=== PATIENT | male | born 1955 | race Asian ===

== ENCOUNTER 2018-05-26 14:33 | Emergency (ER) | payer OTHER ==
[~2018-05-26] VITALS: Ht 182.9 cm; Wt 81.6 kg
[2018-05-26 14:34] VITALS: TEMP 98
[2018-05-26 15:15] LABS: PLATELET COUNT 364 K/uL (142-355)
[2018-05-26 15:24] LABS: POTASSIUM 4.7 mmol/L (3.6-5.2)
[2018-05-26 16:48] VITALS: BP 124/72
[2018-05-26] MEDS ORDERED: ASCORBIC ACD500 MG PO (17:26)
[2018-05-26] MEDS ORDERED: ASPIRIN 8181 MG PO (17:27)
[2018-05-26] MEDS ORDERED: BENZTROPINE2 MG PO (17:28)
[2018-05-26] MEDS ORDERED: DIVA500T2 PO (17:29)
[2018-05-26] MEDS ORDERED: MELATONIN3 M1 PO (17:32)
[2018-05-26] MEDS ORDERED: OLANZAPINE10 M2 PO (17:32)
[2018-05-26] MEDS ORDERED: LEVO0.1519 PO (17:35)
[2018-05-26] MEDS ORDERED: TRAZ100T PO ×2 (17:37→17:39)
[2018-05-26] MEDS ORDERED: VITAMIN B-COMPL1 TAB PO (17:41)
[2018-05-26] MEDS ORDERED: VITAMI11 PO (17:42)
[2018-06-08] MEDS ORDERED: DIVA125C PO (15:27)
[2018-06-08] MEDS ORDERED: SCOP1.5D TD (15:27)
[2018-06-08] MEDS ORDERED: LEVO0.1T6 PO (15:27)
[2018-06-08] MEDS ORDERED: HALO5INJ3 IM (15:27)
[2018-06-08] MEDS ORDERED: ZIPR20IN IM (15:27)
[2018-06-08] MEDS ORDERED: LEVO0.0529 PO (15:27)
[2018-06-08] MEDS ORDERED: OLANZAPINE10 MG PO (15:28)
[2018-06-08] MEDS ORDERED: TRAZ50TA36 PO (15:28)
[2018-06-08] MEDS ORDERED: OXCARBAZEPIN300 MG PO (15:28)
== END 2018-05-26 16:57 | disposition other institution (70) ==
LOC: ED 14:33
PROVIDERS: Family Medicine
DX: F20.89 Other schizophrenia (principal); I10 Essential (primary) hypertension; B19.20 Unspecified viral hepatitis C without hepatic coma; B20 Human immunodeficiency virus [HIV] disease
CPT/HCPCS: 36415; 80053; 81000; 85027; 93005; 99285

== ENCOUNTER 2019-05-04 17:41 | Emergency (ER) | payer OTHER ==
[~2019-05-04] VITALS: Ht 188 cm; Wt 97.1 kg
[~2019-05-04 17:41] MED LIST: ASCORBIC ACD500 MG PO; ASPIRIN 8181 MG PO; BENZTROPINE2 MG PO; DIVA125C PO; DIVA500T2 PO; HALO5INJ3 IM; IBU600 MG PO; LEVO0.0529 PO; LEVO0.1519 PO; LEVO0.1T6 PO; MELATONIN3 M1 PO; OLANZAPINE10 M2 PO; OLANZAPINE10 MG PO; OXCARBAZEPIN300 MG PO; SCOP1.5D TD; TRAZ100T PO; TRAZ50TA36 PO; VITAMI11 PO; VITAMIN B-COMPL1 TAB PO; ZIPR20IN IM
[2019-05-04 18:37] LABS: PLATELET COUNT 258 K/uL (142-355)
[2019-05-04 18:52] LABS: POTASSIUM 4.6 mmol/L (3.6-5.2)
[2019-05-04 19:50] VITALS: BP 133/80; TEMP 98
[2019-05-04] MEDS ORDERED: DOCU100C10 PO (23:39)
[2019-05-04] MEDS ORDERED: LISI5TAB10 PO (23:41)
[2019-05-04] MEDS ORDERED: DIVA250T2 PO (23:43)
[2019-05-04] MEDS ORDERED: UNITH DIRECT150 MCG PO (23:45)
[2019-05-04] MEDS ORDERED: ODANSETRON PO (23:48)
[2019-05-04] MEDS ORDERED: TYLENOL325 MG PO (23:49)
[2019-05-04] MEDS ORDERED: CVS GLYCERIN ADU2 GM RE (23:52)
[2019-05-04] MEDS ORDERED: VIT D3 PO (23:54)
[2019-05-05] MEDS ORDERED: MAGNSUS68 PO (00:02)
[2019-05-05] MEDS ORDERED: ABACAVIR SULFAT1 TAB PO ×2 (00:05→00:06)
[2019-05-05] MEDS ORDERED: LEXAPRO10 MG PO (00:05)
[2019-05-05] MEDS ORDERED: HALO50IN4 IM (00:16)
== END 2019-05-04 19:52 | disposition other institution (70) ==
LOC: ED 17:47
PROVIDERS: Family Medicine
DX: R46.89 Other symptoms and signs involving appearance and behavior (principal); F20.89 Other schizophrenia; Z04.6 Encounter for general psychiatric examination, requested by authority
CPT/HCPCS: 36415; 80053; 81000; 85027; 93005; 99285

== ENCOUNTER 2019-06-11 19:59 | Emergency (ER) | payer OTHER ==
[~2019-06-11] VITALS: Ht 188 cm; Wt 98.4 kg
[~2019-06-11 19:59] MED LIST changes: +ABACAVIR SULFAT1 TAB PO; +ABILIFY MYCITE15 MG PO; +CVS GLYCERIN ADU2 GM RE; +DIVA250T2 PO; +DIVALPROEX500 MG PO; +DOCU100C10 PO; +ESCI10TA PO; +HALO50IN4 IM; +LEXAPRO10 MG PO; +LISI5TAB10 PO; +MAGNSUS68 PO; +ODANSETRON PO; +ONDA4TAB3 PO; +SCOP1.5D TOP; +TYLENOL325 MG PO; +UNITH DIRECT150 MCG PO; +VIT D3 PO
[2019-06-11 20:11] LABS: PLATELET COUNT 298 K/uL (142-355)
[2019-06-11 20:19] VITALS: BP 133/79; TEMP 97.5
[2019-06-11 20:27] LABS: POTASSIUM 4.3 mmol/L (3.6-5.2)
[2019-07-10] MEDS ORDERED: OXCARBAZEPIN300 MG PO ×3 (10:16)
[2019-07-10] MEDS ORDERED: ONDA4TAB3 PO (10:16)
[2019-07-10] MEDS ORDERED: OLANZAPINE10 MG PO (10:17)
[2019-07-10] MEDS ORDERED: LITH300C3 PO (10:17)
[2019-07-10] MEDS ORDERED: ESCI10TA PO (10:17)
[2019-07-10] MEDS ORDERED: AMOX875T8 PO (10:18)
[2019-07-10] MEDS ORDERED: HALO50IN4 IM (10:19)
== END 2019-06-11 21:10 | disposition other institution (70) ==
LOC: ED 19:59
PROVIDERS: Student in an Organized Health Care Education/Training Program
DX: F91.9 Conduct disorder, unspecified (principal); F25.9 Schizoaffective disorder, unspecified; Z04.6 Encounter for general psychiatric examination, requested by authority
CPT/HCPCS: 80053; 80156; 80164; 85027; 93005; 99285